=== PATIENT | female | born 1950 | race Caucasian/White ===

== ENCOUNTER 2017-06-18 07:22 | Outpatient (CLI) | payer OTHER | END 2017-06-18 07:23 | disposition home or self-care (01) | LOC: BICMAMMO 07:22 | PROVIDERS: ATTEND Family Medicine | DX: Z12.31 Encounter for screening mammogram for malignant neoplasm of breast (principal); Z13.820 Encounter for screening for osteoporosis; M41.125 Adolescent idiopathic scoliosis, thoracolumbar region; M54.9 Dorsalgia, unspecified | CPT/HCPCS: 72081; 77063; 77067; 77080; G0202 ==

== ENCOUNTER 2017-08-12 12:17 | Outpatient (CLI) | payer MEDICARE ==
--- NOTE | 2017-08-12 14:20 | RAD ---
RADIOGRAPH LUMBAR SPINE 4 VIEWS: DATE: 08/12/2017 HISTORY: A 66-year-old female with scoliosis and chronic low back pain. COMPARISON: None available. TECHNIQUE: All views standing: Frontal view. Lateral views in flexion, extension, and neutral. FINDINGS: There are five lumbar type vertebrae. There is an approximately 50 degree dextroscoliosis (when harlan ured from the T9-T10 level to the L1-L2 level) with apex of curvature at T12-L1. There is a grade 2 right lateral subluxation of L2 on L3. There is severe disk space narrowing at all levels, associate d with endplate sclerosis and prominent endplate marginal osteophytosis. The endplate osteophytes ar e greater on the left, concave side of the main curvature, at and near the thoracolumbar junction; an d in the concave side of the counter-curvature, at the mid and lower lumbar spine. It is difficult t o evaluate for mild vertebral body height loss due to the distortion caused by the scoliosis, but no severe vertebral body collapse is identified. There is also exaggerated kyphosis centered at the tho racolumbar junction. No major spondylolisthesis. No instability between flexion and extension. IMPRESSION: 1. Severe kyphoscoliosis, including dextrorotoscoliosis centered at the thoracolumbar junction. 2. Severe lumbar spondylosis throughout the entire lumbar spine, consisting of severe degenerative d isk disease at all levels. 3. 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 4. No instability, and no major spondylolisthesis. ANSHU [] POS: [facility]
--- NOTE | 2017-08-12 15:03 | MRI ---
MRI LUMBAR SPINE NONCONTRAST: History: Back pain. Scoliosis. FINDINGS: The conus medullaris has a normal appearance. There is severe S-shaped rotatory scoliotic curvature. Opacification of all of the intervertebral discs is apparent with prominent discogenic endplate kim es. Prominent heterogeneous discogenic endplate changes are present throughout the bone marrow. Pedic ular edema is most pronounced on the right at the L5 level. T12-L1: Circumferential degenerative changes result in mild central canal and moderate left foraminal stenosis. L1-2: There is disc space narrowing. Circumferential degenerative changes result in mild central connor l stenosis and mild stenosis of each neural foramen. L2-3: There is disc space narrowing. Circumferential degenerative changes result in moderate stenosis of the central canal and severe stenosis of each neural foramen. L3-4: Circumferential degenerative changes result in moderate stenosis of the central canal and sever e stenosis at each neural foramen. L4-5: Circumferential degenerative changes result in moderate to severe stenosis of the central canal . There is severe right and moderate left foraminal stenoses. L5-S1: Posterior central disc protrusion slightly effaces the ventral aspect of the thecal sac. There is severe stenosis at each neural foramen. IMPRESSION: 1. Severe multilevel degenerative changes throughout the lumbar spine, with bilateral foraminal steno ses as detailed above. 2. No evidence of compression fracture. POS: [facility]
--- NOTE | 2017-08-12 15:19 | MRI ---
MRI THORACIC SPINE NONCONTRAST: Date: 08/12/17 HISTORY: Back pain. Scoliosis. FINDINGS: Compression Fractures: T7: Moderate edema throughout the bone marrow. Superior end plate compression of approximately 20%. T10: Mild residual edema. Anterior wedging approximately 20%. T11: Mild residual edema. Minimal compression. T12: Moderate residual edema. Minimal compression. L1: Mild residual edema superior end plate without significant compression. There is moderate rightward convex rotatory scoliotic curvature. Throughout the upper to mid thoracic spine, there are disc bulges to various degrees, without focal herniation or nerve root compression. At the T10-11 level, circumferential degenerative changes result in severe stenosis of the central ca nal. At the T11-12 level, circumferential degenerative changes result in moderate stenosis of the central canal. No abnormal signal is apparent within the spinal cord. Of the right neural foramina, stenosis is greatest at the T9-10 level where it is severe. Mild to moderate stenosis of the left neural foramina is apparent throughout the thoracic spine. IMPRESSION: 1. Severe multilevel degenerative changes throughout the thoracic spine, with central canal and fora lorraine stenoses as detailed above. No evidence of myelomalacia. 2. Multilevel partial compression deformities of the thoracic spine, including residual edema sugges ting subacute fractures at multiple levels. POS: [facility]
== END 2017-08-12 12:18 | disposition home or self-care (01) ==
LOC: SCSMRI 12:17
PROVIDERS: ATTEND Surgery
DX: M41.9 Scoliosis, unspecified (principal); M47.816 Spondylosis without myelopathy or radiculopathy, lumbar region; M41.125 Adolescent idiopathic scoliosis, thoracolumbar region; S33.120A Subluxation of L2/L3 lumbar vertebra, initial encounter; M47.814 Spondylosis without myelopathy or radiculopathy, thoracic region; M48.04 Spinal stenosis, thoracic region; M99.52 Intervertebral disc stenosis of neural canal of thoracic region; R60.0 Localized edema; M99.53 Intervertebral disc stenosis of neural canal of lumbar region
CPT/HCPCS: 72110; 72146; 72148

== ENCOUNTER 2021-06-26 12:41 | Outpatient (CLI) | payer MEDICARE | END 2021-06-26 12:42 | disposition home or self-care (01) | LOC: BICRAD 12:41 | PROVIDERS: ATTEND Specialist | DX: M47.812 Spondylosis without myelopathy or radiculopathy, cervical region (principal); M43.12 Spondylolisthesis, cervical region | CPT/HCPCS: 72050 ==